=== PATIENT | male | born 1980 | race Caucasian/White ===

== ENCOUNTER 2016-06-19 12:16 | Emergency (ER) | payer BC ==
[~2016-06-19] VITALS: Ht 175.3 cm; Wt 86.2 kg
[2016-06-19 12:35] VITALS: BP 141/83
[2016-06-19] MEDS ORDERED: TETRACAINE HCL 0.5% OPTH(EYE) SOLN 4ML EACHEYE ONE (12:45)
[2016-06-19] MEDS ORDERED: FLUORESCEIN SOD 1 MG TEST STRIP EACHEYE ONE (12:45)
== END 2016-06-19 13:17 | disposition home or self-care (01) ==
LOC: ER 12:22
DX: S05.01XA Injury of conjunctiva and corneal abrasion without foreign body, right eye, initial encounter (principal); X58.XXXA Exposure to other specified factors, initial encounter; Y93.89 Activity, other specified; Y99.8 Other external cause status; Y92.009 Unspecified place in unspecified non-institutional (private) residence as the place of occurrence of the external cause